=== PATIENT | male | born 1940 | race Caucasian/White ===

== ENCOUNTER 2017-02-19 01:51 | Inpatient (IN) | payer OTHER ==
[~2017-02-19] VITALS: Ht 172.7 cm; Wt 88.9 kg
--- NOTE | 2017-02-19 02:10 | NUR ---
FRANKY RA FROM [facility]; FEVER. PT AOX2. RR EVEN AND UNLABORED. NO SOB NOTED. NAD NOTED. NO NVD AT THIS TIME. PT GOWNED AND PLACED ON MONITOR. PT NOT DIAPHORETIC. RECTAL TEMP 102.8 DR. DESHPANDE AT BEDSIDE.
--- NOTE | 2017-02-19 02:11 | NUR ---
IV STARTED ON LEFT AC 18G. LABS DRAWN. SENT TO LAB
--- NOTE | 2017-02-19 02:12 | NUR ---
PT NOTED WITH COLOSTOMY BAG INTACT.
[2017-02-19] MEDS ORDERED: LEVOFLOXACIN 750 MG /D5W 150ML 150 ML IV ONE (02:15)
[2017-02-19] MEDS ORDERED: ACETAMINOPHEN 650 MG/SUPP.RECT RC ONE ×2 (02:15→02:30)
--- NOTE | 2017-02-19 02:15 | NUR ---
UNABLE TO COLLECT URINE VIA IN N OUT CATH, PER CONDOM CATH PLACED. TOELRATED BY PT.
[2017-02-19 02:21] LABS: BASOPHILS % (AUTO) 0.1 % (0.0-2.0); EOSINOPHILS % (AUTO) 0.1 % (0.0-6.0); HEMATOCRIT 39 % (39-51); HEMOGLOBIN 12.6 g/dL (13.5-17.5); LYMPHOCYTES # (AUTO) 0.8 /CMM (0.8-4.8); LYMPHOCYTES % (AUTO) 8.6 % (20.0-44.0); MEAN CORPUSCULAR HEMOGLOBIN 27 PG (26.0-33.0); MEAN CORPUSCULAR HGB CONC 33 g/dl (31.0-36.0); MEAN CORPUSCULAR VOLUME 84 fL (80-96); MONOCYTES # (AUTO) 1.1 /CMM (0.1-1.30); NEUTROPHILS # (AUTO) 7.2 /CMM (1.8-8.9); NEUTROPHILS % (AUTO) 79.2 % (43.0-81.0); PLATELET COUNT (AUTO) 280 /CMM (150-450); RDW COEFFICIENT OF VARIATION 17.2 (11.5-15.0); RED BLOOD CELL COUNT(AUTO) 4.62 MIL/uL (4.5-6.0); WHITE BLOOD COUNT (AUTO) 9.1 K/uL (4.3-11.0)
--- NOTE | 2017-02-19 02:29 | NUR ---
LAB AT BEDSIDE FOR BLOOD CX DRAW.
[2017-02-19 02:30] LABS: CALCIUM, SERUM 9.4 mg/dL (8.5-10.1); CARBON DIOXIDE 20 mmol/L (21-32); CHLORIDE 104 mmol/L (98-107); GLUCOSE 100 mg/dL (74-106); POTASSIUM 4.8 mmol/L (3.5-5.1); SODIUM SERUM 139 mmol/L (136-145); UREA NITROGEN, BLOOD 63 mg/dL (7-18)
[2017-02-19] MEDS ORDERED: LEVOFLOXACIN 750 MG /D5W 150ML PIGGYBACK IV ONE (02:30)
[2017-02-19] MEDS ORDERED: IV NS 0.9% 1,000 ML BAG IV ONE ×3 (02:30→11:30)
--- NOTE | 2017-02-19 02:30 | NUR ---
XRAY AT BEDSIDE FOR CXR
[2017-02-19 02:33] LABS: INR 1.12 (0.87-1.13); PROTHROMBIN TIME 12.1 SECS (9.5-12.7)
[2017-02-19 02:36] LABS: ALANINE AMINOTRANSFERASE 73 U/L (12-78); ALBUMIN 2.3 g/dL (3.4-5.0); ALKALINE PHOSPHATASE 113 U/L (46-116); ASPARTATE AMINOTRANSFERASE 125 U/L (15-37); BILIRUBIN,TOTAL 1.6 mg/dL (0.2-1.0); TOTAL PROTEIN, SERUM 7.8 g/dL (6.4-8.2)
[2017-02-19 02:38] LABS: TROPONIN I < 0.017 ng/mL (0.00-0.056)
--- NOTE | 2017-02-19 02:43 | NUR ---
PER DR. JERAMY BRAGA TO GIVE IVPB ATB PRIOR TO COLLECTING URINE.
[2017-02-19] MEDS ORDERED: ACET325T53 PO (02:54)
[2017-02-19] MEDS ORDERED: MAGN2400 PO (02:54)
[2017-02-19] MEDS ORDERED: NA P133E RC (02:54)
[2017-02-19] MEDS ORDERED: LEVO125T8 PO (02:54)
[2017-02-19] MEDS ORDERED: BISA10SU8 RC (02:54)
[2017-02-19] MEDS ORDERED: DEXT15DR6 EACHEYE (02:54)
[2017-02-19] MEDS ORDERED: HYDR-552 PO (02:54)
[2017-02-19] MEDS ORDERED: MEMA10TA PO (02:54)
[2017-02-19] MEDS ORDERED: ONDA4TAB11 PO (02:54)
[2017-02-19] MEDS ORDERED: PIPERACILLIN /TAZOBACTAM 3.375 G in IV D5W 50 ML IV ONE (03:30)
[2017-02-19] MEDS ORDERED: VANCOMYCIN 1 GM in IV D5W 250 ML IV ONE (03:30)
[2017-02-19] MEDS ORDERED: OLAN20TA3 PO (03:51)
[2017-02-19] MEDS ORDERED: ATOR10TA PO (03:51)
[2017-02-19] MEDS ORDERED: PANT40TA4 PO (03:51)
[2017-02-19] MEDS ORDERED: ASPI81TA2 PO (03:51)
[2017-02-19] MEDS ORDERED: MULT-1185 PO (03:51)
[2017-02-19] MEDS ORDERED: LAMO100T2 PO (03:51)
[2017-02-19] MEDS ORDERED: FOLI1TAB16 PO (03:51)
[2017-02-19] MEDS ORDERED: PIPERACILLIN /TAZOBACTAM 3.375 G VIAL IV ONE (04:19)
[2017-02-19] MEDS ORDERED: LIDOCAINE 2% JEL UROJET 10 ML MM ONE ×3 (04:47→05:13)
--- NOTE | 2017-02-19 05:17 | NUR ---
DR CARSON JAMES PER DR DESHPANDE
--- NOTE | 2017-02-19 05:18 | NUR ---
UROLOGIST CARSON SPEAKING TO DR. DESHPANDE REGARDING PT POC
[2017-02-19] MEDS ORDERED: PROPOFOL 20 ML IV ONE (05:22)
[2017-02-19] MEDS ORDERED: FENTANYL PF 100MCG/2ML AMPUL ONE (05:22)
--- NOTE | 2017-02-19 05:38 | NUR ---
DR. DESHPANDE AND RT AT BEDSIDE FOR CONSCIOUS SEDATION FOR SUPRAPUBIC CATHETER PLACEMENT.
[2017-02-19] MEDS ORDERED: LIDOCAINE 2% 50 ML MDV IJ ONE (05:41)
--- NOTE | 2017-02-19 05:50 | NUR ---
SUPRAPUBIC CATHETER PLACED PER DR. DESHPANDE
--- NOTE | 2017-02-19 06:00 | NUR ---
URINE COLLECTED. CALLED LAB FOR AUTOMATIC OPERATOR.
--- NOTE | 2017-02-19 06:08 | NUR ---
PT ASSIGNED TO BED 313-1
--- NOTE | 2017-02-19 06:20 | NUR ---
DR. DESHPANDE SPEAKING TO DR. TAYLOR REGARDING POC/ ADMISSION
[2017-02-19] MEDS ORDERED: VANCOMYCIN 1 GM VIAL ONE (06:29)
[2017-02-19] MEDS ORDERED: MAG HYDROX/AL HYDROX/SIMETH 30 ML UDC PO PRN (06:30)
[2017-02-19] MEDS ORDERED: MAGNESIUM HYDROXIDE 30 ML UDC PO PRN (06:30)
[2017-02-19] MEDS ORDERED: ZOLPIDEM TARTRATE 5 MG TABLET PO PRN (06:30)
[2017-02-19] MEDS ORDERED: ONDANSETRON HCL/PF 4 MG/2 ML VIAL IVP PRN (06:30)
--- NOTE | 2017-02-19 06:41 | NUR ---
REPORT GIVEN MARVA MALDONADO FOR VINCENT / BED 313-1
--- NOTE | 2017-02-19 06:50 | NUR ---
RECTAL TEMP RECHECK NOTED 102.3. DR DESHPANDE MADE AWARE.
[2017-02-19] MEDS ORDERED: FENTANYL PF 100MCG/2ML AMPUL IV PRN (07:00)
[2017-02-19] MEDS ORDERED: PROPOFOL 200 MG/20 ML VIAL IV ONE (07:00)
[2017-02-19 07:07] LABS: APPEARANCE,URINE CLOUDY (CLEAR); BILIRUBIN,URINE NEGATIVE (NEGATIVE); BLOOD, URINE 3+ Ery/uL (NEGATIVE); COLOR,URINE YELLOW (YELLOW); KETONES,URINE NEGATIVE (NEGATIVE); LEUKOCYTE ESTERASE ,URINE 3+ (NEGATIVE); NITRITE, URINE NEGATIVE (NEGATIVE); PH,URINE 8.5 (5.0-8.0); PROTEIN,URINE 2+ mg/dl (NEGATIVE); UGLUCOSE NEGATIVE (NEGATIVE); UROBILINOGEN,URINE 0.2 EU/dL (0.2)
[2017-02-19 07:13] LABS: BACTERIA,URINE 4+ /HPF (None Seen); MUCUS,URINE Moderate /LPF (None Seen); RBC,URINE 21-50 /HPF (0-2); URINE AMORPHOUS URATE Moderate /HPF (None Seen); WBC,URINE 81-100 /HPF (0-3)
--- NOTE | 2017-02-19 07:17 | NUR ---
PT TRANSFERED PER [facility]S PROTOCOL TO THE [facility] BED 313-1
--- NOTE | 2017-02-19 07:25 | NUR ---
AUTOCAD OPERATORMATERIAL HANDLING TECHNICIAN NOTE PATIENT ARRIVE TO THE UNIT. REPORT RECEIVED. PATIENT IS FEBRILE. A/O X2. BED IS LOCKED IN LOWEST POSITION, SIDE RAILS ELEVATED X 3, BED ALARM IS ON. ALL NEEDS WITHIN REACH. WILL COME BACK FOR INITIAL ASSESSMENT SHORTLY.
[2017-02-19] MEDS ORDERED: PANTOPRAZOLE 40 MG TABLET.DR PO SCH (07:30)
[2017-02-19 08:00] VITALS: BP 103/49
[2017-02-19] MEDS: LEVOTHYROXINE SODIUM 125 MCG TABLET PO SCH (08:32)
[2017-02-19] MEDS: PANTOPRAZOLE 40 MG TABLET.DR PO SCH (08:33)
[2017-02-19] MEDS: LamoTRIgine 100 MG TABLET PO SCH (08:33)
[2017-02-19] MEDS: ASPIRIN 81 MG TAB.CHEW PO SCH (08:35)
[2017-02-19] MEDS: ACETAMINOPHEN 325 MG TABLET PO PRN (08:36)
[2017-02-19] MEDS: Z GUARD REMEDY 2 OZ OINT TP PRN ×2 (08:43→18:25)
[2017-02-19] MEDS: PIPERACILLIN /TAZOBACTAM 2.25 G in IV D5W 50 ML IV SCH ×3 (10:23→23:38)
[2017-02-19] MEDS: IV NS 0.9% 1,000 ML IV PRN (10:23)
--- NOTE | 2017-02-19 11:21 | NUR ---
MS RN NOTE RECEIVED ORDER FOR IV NS BOLUS. CALLED PHARMACY TO VERIFY THE ORDER. WILL ADMINISTER SOON PHARMACY VERIFIES.
[2017-02-19] MEDS ORDERED: PIPERACILLIN /TAZOBACTAM 4.5 G in IV D5W 50 ML IV SCH (12:00)
[2017-02-19 14:07] LABS: CHOLESTEROL 79 mg/dL (<200); HDL CHOLESTEROL 15 mg/dL (40-60); LDL 49 mg/dL (0-99); TRIGLYCERIDES 86 mg/dL (30-150)
[2017-02-19 16:00] VITALS: BP 105/60
--- NOTE | 2017-02-19 17:15 | NUR ---
MS RN CLOSING NOTE PATIENT IS STABLE IN BED. VS WNL. BED IS LOCKED, IN LOWEST POSITION. SIDE RAILS UP X 2. ALL NEEDS WITHIN REACH. DENIES PAIN/DISCOMFORT AT THIS TIME. WILL ENDORSE TO THE NEST SHIFT FOR VINCENT.
--- NOTE | 2017-02-19 19:15 | NUR ---
RN NOTES RECEIVED PT AWAKE, HOB ELEVATED, NO SOB, NOT IN DISTRESS ON 3LPM O2 VIA NC AND TOLERATED WELL. PT ALERT AND ORIENTED X2, VERBALLY RESPONSIVE, DENIES ANY PAIN AND DISCOMFORT AT THIS TIME. IV ACCESS ON LEFT AC PATENT AND INTACT WITH ONGOING IV FLUID INFUSING WELL. COLOSTOMY BAG INTACT WITH GREENISH WATERY OUTPUT NOTED. SUPRAPUBIC CATH INTACT WITH CLEAR URINE OUTPUT NOTED. BOTH LOWER LEG WITH DVT PUMP ON, WITH BOTH HEELS OFFLOADED. KEPT PT COMFORTABLE AND ATTENDED. KEPT BED IN THE LOWEST POSITION, LOCKED, SIDE RAILS X2 UP, WITH CALL LIGHT WITH IN REACH. WILL CONTINUE TO MONITOR PT.
[2017-02-19 20:00] VITALS: BP 98/55
[2017-02-19] MEDS: HEPARIN SODIUM, PORCINE 5000 UNITS/1 ML VIAL SQ SCH (21:47)
[2017-02-19] MEDS: ATORVASTATIN 10 MG TABLET PO SCH (21:49)
[2017-02-19 22:00] VITALS: BP 98/55
[2017-02-20] MEDS: HYDROCODONE/APAP 5/325MG 1 EACH TABLET PO PRN (00:25)
--- NOTE | 2017-02-20 00:25 | NUR ---
RN NOTES PT COMPLAINS OF GENERALIZED BODY PAIN 01/02NORCO 5/325 MG TAB GIVEN PO AND TOLERATED WELL. WILL CONTINUE TO MONITOR PT.
[2017-02-20] MEDS: IV NS 0.9% 1,000 ML IV PRN ×2 (04:49→21:59)
[2017-02-20] MEDS: PIPERACILLIN /TAZOBACTAM 2.25 G in IV D5W 50 ML IV SCH ×3 (05:17→17:36)
--- NOTE | 2017-02-20 07:11 | NUR ---
RN NOTES PT ASLEEP, HOB ELEVATED, BREATHING REGULAR AND UNLABORED, NO SIGNS OF DISTRESS AND DISCOMFORT NOTED, ON 2LPM O2 WITH GOOD SATURATION. VITAL SIGNS STABLE, AFEBRILE. NO EPISODE OF NAUSEA AND VOMITING. NO COMPLAIN OF CHEST PAIN. KEPT GENERALIZED BODY PAIN AT TOLERABLE LEVEL. KEPT CLEAN AND DRY. TURNED AND REPOSITIONED Q2H. ALL NEEDS ATTENDED. ENDORSED TO MORNING RN FOR CONTINUITY OF CARE.
--- NOTE | 2017-02-20 07:15 | NUR ---
MS RN NOTES RECEIVED PATIENT IN BED, AWAKE. A/O X2. ON OXYGEN AT 3 LPM VIA NC, BREATHING EVEN AND NON LABORED. IV NS INFUSING AT 75ML/HR, TOLERATING WELL, NO SOB. SUPRAPUBIC CATH IN PLACE, DRAINING TO GRAVITY. NO C/O PAIN AT THIS TIME. CALL LIGHT WITHIN REACH. WILL CONT TO MONITOR.
[2017-02-20 07:17] LABS: EOSINOPHILS % (AUTO) 0.4 % (0.0-6.0); HEMATOCRIT 34 % (39-51); HEMOGLOBIN 11.4 g/dL (13.5-17.5); LYMPHOCYTES # (AUTO) 0.3 /CMM (0.8-4.8); LYMPHOCYTES % (AUTO) 4.7 % (20.0-44.0); MEAN CORPUSCULAR HEMOGLOBIN 28 PG (26.0-33.0); MEAN CORPUSCULAR HGB CONC 33 g/dl (31.0-36.0); MEAN CORPUSCULAR VOLUME 83 fL (80-96); MONOCYTES # (AUTO) 0.5 /CMM (0.1-1.30); MONOCYTES % (AUTO) 7.9 % (2.0-12.0); NEUTROPHILS # (AUTO) 5.7 /CMM (1.8-8.9); PLATELET COUNT (AUTO) 263 /CMM (150-450); RDW COEFFICIENT OF VARIATION 18.2 (11.5-15.0); RED BLOOD CELL COUNT(AUTO) 4.14 MIL/uL (4.5-6.0); WHITE BLOOD COUNT (AUTO) 6.6 K/uL (4.3-11.0)
[2017-02-20 07:28] LABS: ALANINE AMINOTRANSFERASE 55 U/L (12-78); ALBUMIN 1.8 g/dL (3.4-5.0); ALKALINE PHOSPHATASE 104 U/L (46-116); ASPARTATE AMINOTRANSFERASE 68 U/L (15-37); BILIRUBIN,TOTAL 1.1 mg/dL (0.2-1.0); CALCIUM, SERUM 8.7 mg/dL (8.5-10.1); CARBON DIOXIDE 19 mmol/L (21-32); CHLORIDE 108 mmol/L (98-107); CREATININE 2.4 mg/dL (0.6-1.3); GLUCOSE 127 mg/dL (74-106); MAGNESIUM 2.3 mg/dL (1.8-2.4); PHOSPHORUS 3.7 mg/dL (2.5-4.9); POTASSIUM 4.2 mmol/L (3.5-5.1); SODIUM SERUM 138 mmol/L (136-145); TOTAL PROTEIN, SERUM 6.6 g/dL (6.4-8.2); UREA NITROGEN, BLOOD 51 mg/dL (7-18)
[2017-02-20 07:47] LABS: CREATINE KINASE, TOTAL 70 U/L (39-308); THYROID STIMULATING HORMONE 0.715 uIU/mL (0.358-3.74)
[2017-02-20 08:00] VITALS: BP 109/43
[2017-02-20] MEDS: PANTOPRAZOLE 40 MG TABLET.DR PO SCH (08:29)
[2017-02-20] MEDS: LamoTRIgine 100 MG TABLET PO SCH (08:29)
[2017-02-20] MEDS: LEVOTHYROXINE SODIUM 125 MCG TABLET PO SCH (08:29)
[2017-02-20] MEDS: ASPIRIN 81 MG TAB.CHEW PO SCH (08:29)
[2017-02-20] MEDS: HEPARIN SODIUM, PORCINE 5000 UNITS/1 ML VIAL SQ SCH ×2 (08:34→21:23)
--- NOTE | 2017-02-20 09:08 | NUR ---
PATIENT IS SEEN BY DR. SUN-NEURO. FOR PT EVAL TODAY.
--- NOTE | 2017-02-20 10:30 | NUR ---
LOW ALBUMIN 1.8 PATIENT IS SEEN BY KEYONNA. WILL COLLECT STOOL FOR C-DIFF.
[2017-02-20] MEDS: POVIDONE-IODINE OINT 28.4 GM TUBE TP SCH ×2 (10:53→17:36)
--- NOTE | 2017-02-20 10:55 | NUR ---
SUPRAPUBIC CATH IN PLACE WITH CLOUDY YELLOW URINE. BED LINENS WET, NOTED URINE. RIGHT EYE WITH WHITE DISCHARGE EARLIER THIS MORNING. PATIENT IS SEEN BY ID-DR. ALMANZA. WILL INFORM POT LINING SUPERVISOR-SUDHA.
--- NOTE | 2017-02-20 10:57 | NUR ---
WOUND CARE CONSULT: PT PRESENTS WITH SACRAL SCARRING AND DRY ESCHAR TO RT GREAT TOE, PRESENT ON ADMISSION. PT HAS SUPRAPUBIC CATH WITH DRAINAGE BAG AND URINE SEEMS TO BE LEAKING FROM MEATUS ALSO. NOTIFIED BY RN. PT ON GERALDO ISOFLEX LOW AIRLOSS BED. ALL SKIN PROTECTION MEASURES IN PLACE AND DISCUSSED WITH NURSING STAFF. SKIN TO BE KEPT CLEAN AND DRY. PT FOLLOWED BY PLASTICS TEAM AND PODIATRY. DEFER WOUND TREATMENT PLAN TO PLASTICS/PODIATRY TEAM. WILL SEE PRN. IN AGREEMENT WITH PLAN OF CARE. Addendum: 02/20/17 at 1101 by TORRIE NUNEZ WNDNU Amended: Links added.
[2017-02-20] MEDS: ALBUMIN 25% 25 GM in PREMIX 1 EA IV SCH ×2 (12:53→21:59)
[2017-02-20 15:15] LABS: APPEARANCE,URINE TURBID (CLEAR); COLOR,URINE YELLOW (YELLOW)
[2017-02-20 15:16] LABS: BILIRUBIN,URINE NEGATIVE (NEGATIVE); BLOOD, URINE 3+ Ery/uL (NEGATIVE); KETONES,URINE 1+ (NEGATIVE); LEUKOCYTE ESTERASE ,URINE 3+ (NEGATIVE); NITRITE, URINE NEGATIVE (NEGATIVE); PROTEIN,URINE 3+ mg/dl (NEGATIVE); UGLUCOSE NEGATIVE (NEGATIVE); UROBILINOGEN,URINE 0.2 EU/dL (0.2)
[2017-02-20 15:21] LABS: CREATININE, URINE 15.7 MG/DL (30.0-125.0)
[2017-02-20 15:57] LABS: BACTERIA,URINE Few /HPF (None Seen); RBC,URINE TOO NUMEROUS TO COUN /HPF (0-2); SQUAMOUS EPITHELIAL CELL,UR Few /HPF (None Seen); WBC,URINE TOO NUMEROUS TO COUN /HPF (0-3)
[2017-02-20 16:00] VITALS: BP 98/55
[2017-02-20 16:05] LABS: URINE TOTAL PROTEIN 735.7 mg/dL (0-11.9)
[2017-02-20 17:30] LABS: EOSINOPHIL,URINE None Seen
[2017-02-20] MEDS: TOBRAMYCIN OPHTH 5ML 5 ML BOTTLE RIGHTEYE SCH (17:40)
--- NOTE | 2017-02-20 19:00 | NUR ---
MS RN CLOSING NOTES PATIENT IN BED, NOT IN DISTRESS. ON ANTIBIOTIC ORDERED WITH NO S/S OF ADVERSE REACTION. AFEBRILE. GOOD EYE CARE PROVIDED. SUPRAPUBIC CATH INTACT, DRAINING CLOUDY CREAM COLORED URINE. EPISODE OF URINE FROM PENILE MEATUS X1, WELLNESS NURSE RN-SUDHA IS AWARE WITH NO NEW ORDERS AT THIS TIME. STOOL COLLECTED AND SENT TO LAB FOR C-DIFF TEST. CALL LIGHT WITHIN REACH. TURN AND REPOSITION IN BED. WILL ENDORSE TO HEAD OF BIOLOGY RN FOR VINCENT.
--- NOTE | 2017-02-20 19:05 | NUR ---
RN NOTES RECEIVED PT ASLEEP, HOB ELEVATED, NO SIGNS OF DISTRESS AND DISCOMFORT NOTED, ON 3LPM O2 AND TOLERATED WELL. IV ACCESS ON LEFT AC PATENT AND INTACT WITH NS AT 75 MLS/HR INFUSING WELL. SUPRAPUBIC CATH INTACT WITH CLOUDY YELLOW URINE OUTPUT NOTED. BOTH HEELS OFFLOADED. KEPT BED IN THE LOWEST POSITION, LOCKED, SIDE RAILS UP X2 WITH CALL LIGHT WITH IN REACH. KEPT COMFORTABLE AND ATTENDED. WILL CONTINUE TO MONITOR PT.
[2017-02-20 20:39] VITALS: BP 106/52
[2017-02-20] MEDS: ATORVASTATIN 10 MG TABLET PO SCH (21:23)
[2017-02-21] MEDS: PIPERACILLIN /TAZOBACTAM 2.25 G in IV D5W 50 ML IV SCH ×5 (00:03→23:56)
--- NOTE | 2017-02-21 06:52 | NUR ---
RN NOTES PT ASLEEP, HOB ELEVATED, BREATHING REGULAR AND UNLABORED, NO SIGNS OF DISTRESS AND DISCOMFORT NOTED, ON 2LPM O2 WITH GOOD SATURATION. VITAL SIGNS STABLE, AFEBRILE. NO COMPLAIN OF PAIN, NO EPISODE OF NAUSEA AND VOMITING. URINE OUTPUT NOTED CLOUDY WITH SEDIMENTS. KEPT CLEAN AND DRY. TURNED AND REPOSITIONED Q2H. ALL MEDS GIVEN. ALL NEEDS ATTENDED. ENDORSED TO MORNING RN FOR CONTINUITY OF CARE.
[2017-02-21 07:08] LABS: BASOPHILS % (AUTO) 0.1 % (0.0-2.0); EOSINOPHILS % (AUTO) 0.4 % (0.0-6.0); HEMATOCRIT 31 % (39-51); HEMOGLOBIN 10.5 g/dL (13.5-17.5); LYMPHOCYTES # (AUTO) 0.5 /CMM (0.8-4.8); LYMPHOCYTES % (AUTO) 8.6 % (20.0-44.0); MEAN CORPUSCULAR HEMOGLOBIN 28 PG (26.0-33.0); MEAN CORPUSCULAR HGB CONC 34 g/dl (31.0-36.0); MEAN CORPUSCULAR VOLUME 83 fL (80-96); MONOCYTES # (AUTO) 0.5 /CMM (0.1-1.30); MONOCYTES % (AUTO) 8.7 % (2.0-12.0); NEUTROPHILS # (AUTO) 4.9 /CMM (1.8-8.9); NEUTROPHILS % (AUTO) 82.2 % (43.0-81.0); PLATELET COUNT (AUTO) 252 /CMM (150-450); RDW COEFFICIENT OF VARIATION 17.9 (11.5-15.0)
[2017-02-21 07:29] LABS: CALCIUM, SERUM 8.6 mg/dL (8.5-10.1); CARBON DIOXIDE 20 mmol/L (21-32); CHLORIDE 109 mmol/L (98-107); GLUCOSE 95 mg/dL (74-106); MAGNESIUM 2.2 mg/dL (1.8-2.4); PHOSPHORUS 3.4 mg/dL (2.5-4.9); POTASSIUM 4.4 mmol/L (3.5-5.1); SODIUM SERUM 139 mmol/L (136-145); UREA NITROGEN, BLOOD 40 mg/dL (7-18)
--- NOTE | 2017-02-21 07:30 | NUR ---
RN MS NOTES PT IN BED, AWAKE, ALERT AND ORIENTED, DENIES PAIN, NOT IN DISTRESS, IV FLUIDS INFUSING WELL, SUPRAPUBIC CATH IN PLACE, CALL LIGHT WITHIN REACH, ASSISTED WITH BREAKFAST, NEEDS ATTENDED.
[2017-02-21 08:00] VITALS: BP 109/52
[2017-02-21] MEDS: ASPIRIN 81 MG TAB.CHEW PO SCH (08:19)
[2017-02-21] MEDS: PANTOPRAZOLE 40 MG TABLET.DR PO SCH (08:19)
[2017-02-21] MEDS: LamoTRIgine 100 MG TABLET PO SCH (08:19)
[2017-02-21] MEDS: LEVOTHYROXINE SODIUM 125 MCG TABLET PO SCH (08:27)
[2017-02-21] MEDS: TOBRAMYCIN OPHTH 5ML 5 ML BOTTLE RIGHTEYE SCH ×2 (08:28→16:58)
[2017-02-21] MEDS: HEPARIN SODIUM, PORCINE 5000 UNITS/1 ML VIAL SQ SCH ×2 (08:29→22:03)
[2017-02-21] MEDS: POVIDONE-IODINE OINT 28.4 GM TUBE TP SCH ×2 (08:33→16:58)
[2017-02-21 12:12] LABS: PTH, INTACT 25 pg/mL (15-65)
--- NOTE | 2017-02-21 12:30 | NUR ---
RN MS NOTES PT IN BED, ASLEEP, EASY TO AROUSE, ALERT AND ORIENTED, NO COMPLAINT AT THIS TIME, IV FLUIDS INFUSING WELL, ASSISTED IN TURNING AND REPOSITIONING, KEPT SKIN CLEAN AND DRY, CALL LIGHT WITHIN REACH.
[2017-02-21 13:13] LABS: *SPE A/G RATIO 0.6 (0.7-1.7); *SPE ALBUMIN 2.1 g/dL (2.9-4.4); *SPE ALPHA-1-GLOBULIN 0.4 g/dL (0.0-0.4); *SPE ALPHA-2-GLOBULIN 0.9 g/dL (0.4-1.0); *SPE BETA GLOBULIN 0.8 g/dL (0.7-1.3); *SPE GLOBULIN, TOTAL 3.4 g/dL (2.2-3.9); *SPE M-SPIKE Not Observed g/dL (Not Observed); *SPE PROTEIN TOTAL 5.5 g/dL (6.0-8.5); *SPEGAMMA GLOBULIN 1.2 g/dL (0.4-1.8)
[2017-02-21] MEDS: IV NS 0.9% 1,000 ML IV PRN (14:27)
[2017-02-21 16:00] VITALS: BP 109/62
--- NOTE | 2017-02-21 17:52 | NUR ---
Patient slept most of the day, awakening when name spoken. Repositioned Q 2 hours and patient was cooperative. Remains for aditted UTI. Colostomy putting out liquid nash stool. New colostomy bag applied. Remains on Zosyn Supra pubic cath drainage clear yellow. Right great toe noted small scabbed areas, oint applied as ordered. Patient with a good appetite, assist fedand gave encouragment.
--- NOTE | 2017-02-21 19:40 | NUR ---
RN OPENING NOTES RECEIVED REPORT FROM ARINAMAJORDANA RN ADITYA. FOUND Pt AWAKE, RESTING IN BED. NO S/S OF ACUTE DISTRESS OR SOB NOTED. Pt IS A/OX2, VERBAL, ABLE TO MAKE NEEDS KNOWN. COLOSTOMY BAG IN PLACE. SUPRAPUBIC CATH IN PLACE, TENDENCY TO LEAK OUT. IV ACCESS ON LAC #18G, IVF NS @75ML/HR. SAFETY MEASURES IN PLACE. BED LOW, LOCKED, HOB ELEVATED, SIDE RAILS UP, CALL LIGHT AND BEDSIDE TABLE WITHIN REACH. WILL CONTINUE TO MONITOR Pt THROUGHOUT THE NIGHT FOR SAFETY.
[2017-02-21 20:00] VITALS: BP 112/53
[2017-02-21] MEDS: NYSTATIN TOP POWDER 15 GM BOTTLE TP SCH (21:30)
--- NOTE | 2017-02-21 22:00 | NUR ---
RN NOTES NYSTATIN TOP POWDER IS UNVERIFIED PHARMACY IS CLOSED AT THIS TIME. INFORMED CAREERS ADVISER FOR THE MED TO BE OVERIDED. WILL APPLY THE TOP POWDER WHEN MED BECOMES AVAILABLE.
[2017-02-21] MEDS: ATORVASTATIN 10 MG TABLET PO SCH (22:01)
[2017-02-22] MEDS: PIPERACILLIN /TAZOBACTAM 2.25 G in IV D5W 50 ML IV SCH ×4 (05:59→23:38)
[2017-02-22] MEDS: IV NS 0.9% 1,000 ML IV PRN ×2 (06:05→21:08)
--- NOTE | 2017-02-22 06:34 | NUR ---
RN CLOSING NOTES NO SIGNIFICANT CHANGES IN Pt's CONDITION. Pt REMAINED STABLE THROUGHOUT THE NIGHT. NO S/S OF ACUTE DISTRESS OR SOB NOTED. ALL NEEDS MET AND ATTENDED TO. SAFETY MEASURES IN PLACE. WILL ENDORSE TO DAYSHIFT RN FOR Pt's VINCENT.
[2017-02-22 07:02] LABS: BASOPHILS % (AUTO) 0.3 % (0.0-2.0); EOSINOPHILS % (AUTO) 0.3 % (0.0-6.0); HEMATOCRIT 32 % (39-51); HEMOGLOBIN 10.7 g/dL (13.5-17.5); LYMPHOCYTES # (AUTO) 0.7 /CMM (0.8-4.8); LYMPHOCYTES % (AUTO) 11.5 % (20.0-44.0); MEAN CORPUSCULAR HEMOGLOBIN 28 PG (26.0-33.0); MEAN CORPUSCULAR HGB CONC 33 g/dl (31.0-36.0); MEAN CORPUSCULAR VOLUME 83 fL (80-96); MONOCYTES # (AUTO) 0.6 /CMM (0.1-1.30); NEUTROPHILS # (AUTO) 4.8 /CMM (1.8-8.9); NEUTROPHILS % (AUTO) 77.9 % (43.0-81.0); PLATELET COUNT (AUTO) 289 /CMM (150-450); RDW COEFFICIENT OF VARIATION 18.3 (11.5-15.0); RED BLOOD CELL COUNT(AUTO) 3.87 MIL/uL (4.5-6.0); WHITE BLOOD COUNT (AUTO) 6.1 K/uL (4.3-11.0)
[2017-02-22 07:20] LABS: CALCIUM, SERUM 8.4 mg/dL (8.5-10.1); CARBON DIOXIDE 19 mmol/L (21-32); CHLORIDE 108 mmol/L (98-107); GLUCOSE 97 mg/dL (74-106); PHOSPHORUS 3.3 mg/dL (2.5-4.9); POTASSIUM 4.5 mmol/L (3.5-5.1); SODIUM SERUM 138 mmol/L (136-145); UREA NITROGEN, BLOOD 34 mg/dL (7-18)
--- NOTE | 2017-02-22 07:44 | NUR ---
EFFIE RALPH RN: INITIAL NOTES RECEIVED PT ALERT AND ORIENTED X2. PACE MAKER PLACED IN RIGHT UPPER CHEST WALL. COLOSTOMY PRESENT, AND SUPRAPUBIC CATH. ON CARDIAC DIET. LAC #18. RUNNING AT 75ML./HR. NO DISTRESS NOTED. NO PAIN NOTED. NO SOB NOTED. RESTING COMFORTABLY IN BED. CALL LIGHT WITHIN REACH.
[2017-02-22 08:00] VITALS: BP 129/55
[2017-02-22] MEDS: ASPIRIN 81 MG TAB.CHEW PO SCH (08:41)
[2017-02-22] MEDS: NYSTATIN TOP POWDER 15 GM BOTTLE TP SCH ×2 (08:41→17:16)
[2017-02-22] MEDS: LamoTRIgine 100 MG TABLET PO SCH (08:41)
[2017-02-22] MEDS: HEPARIN SODIUM, PORCINE 5000 UNITS/1 ML VIAL SQ SCH ×2 (08:42→21:08)
[2017-02-22] MEDS: TOBRAMYCIN OPHTH 5ML 5 ML BOTTLE RIGHTEYE SCH ×2 (08:42→17:16)
[2017-02-22] MEDS: POVIDONE-IODINE OINT 28.4 GM TUBE TP SCH ×2 (08:43→17:16)
[2017-02-22] MEDS: PANTOPRAZOLE 40 MG TABLET.DR PO SCH (08:45)
[2017-02-22] MEDS: LEVOTHYROXINE SODIUM 125 MCG TABLET PO SCH (08:45)
[2017-02-22 16:00] VITALS: BP 117/54
--- NOTE | 2017-02-22 18:25 | NUR ---
MED SURGE RN: CLOSING NOTE PT ALERT AND ORIENTED X 2. NO DISTRESS NOTED. ON 2L NC SATING AT 95%. NO SOB NOTED. L AC #18G RUNNING NS AT 75ML/HR. SITE PATENT. ATB IV ZOSYN INFUSED. NO ADVERSE REACTIONS NOTED. TOOK ALL MEDICATIONS ON TIME. COLOSTOMY OUTPUT 400ML. SITE PINK AND CLEAR. NO BLEEDING OR DISCOLORATION NOTED. NO PAIN AT SITE. CHANGES BAG. SUPRAPUBIC CATH LEAKING. NOTIFIED MD PEREZ, AWAITING ORDERS. OUTPUT IN DIAPER X4 DUE TO LEAKAGE. RESTING COMFORTABLY IN BED. CALL LIGHT WITHIN REACH.
--- NOTE | 2017-02-22 18:40 | NUR ---
MED SURGE RN: NOTES NOTIFIED MD PEREZ ABOUT LEAKING SUPRAPUBIC CATH. DR. PEREZ STATED THAT TO NOTIFY ER TO REINSERT. NOTIFIED ER. ER IS NOT ABLE TO REINSERT AT THIS TIME DUE TO HIGH SENSES. RE-NOTIFIED .
--- NOTE | 2017-02-22 19:15 | NUR ---
RN NOTES RECEIVED PT AWAKE, HOB ELEVATED, NO SIGNS OF DISTRESS AND DISCOMFORT NOTED, ON 3LPM O2 AND TOLERATED WELL. IV ACCESS ON LEFT AC PATENT AND INTACT WITH NS AT 75 MLS/HR INFUSING WELL. SUPRAPUBIC CATH INTACT BUT NO URINE OUTPUT NOTED ON THE DRAINAGE BAG, ON MORNING NURSE REPORT WILL REINSERT BY DR LOPEZ PER DR PEREZ. BOTH HEELS OFFLOADED. KEPT BED IN THE LOWEST POSITION, LOCKED, SIDE RAILS UP X2 WITH CALL LIGHT WITH IN REACH. KEPT COMFORTABLE AND ATTENDED. WILL CONTINUE TO MONITOR PT.
[2017-02-22 20:00] VITALS: BP 108/50
--- NOTE | 2017-02-22 20:50 | NUR ---
RN NOTES SPOKE TO DR LILY LOPEZ MADE HIM AWARE PT IS FOR SUPRAPUBIC CATH REPLACEMENT TO BE DONE BY HIM PER DR. PEREZ.
[2017-02-22] MEDS: ATORVASTATIN 10 MG TABLET PO SCH (21:08)
[2017-02-22 22:00] VITALS: BP 108/50
[2017-02-22 22:08] LABS: *NEISSERIA GONORRHOEAE NAA Negative (Negative); CHLAMYDIA TRACHOMATIS NAA Negative (Negative)
[2017-02-23 04:00] VITALS: BP 111/57
--- NOTE | 2017-02-23 05:30 | NUR ---
RN NOTES DIAPER WAS CHANGED 3X SOAKED WITH URINE, BLADDER SCAN DONE WITH [address] LOPEZ MADE AWARE, WILL REPLACE SUPRAPUBIC CATH TONIGHT.
[2017-02-23] MEDS: PIPERACILLIN /TAZOBACTAM 2.25 G in IV D5W 50 ML IV SCH ×3 (06:32→17:14)
[2017-02-23 06:59] LABS: BASOPHILS % (AUTO) 0.2 % (0.0-2.0); EOSINOPHILS % (AUTO) 0.4 % (0.0-6.0); HEMATOCRIT 33 % (39-51); HEMOGLOBIN 11.2 g/dL (13.5-17.5); LYMPHOCYTES # (AUTO) 0.6 /CMM (0.8-4.8); LYMPHOCYTES % (AUTO) 8.8 % (20.0-44.0); MEAN CORPUSCULAR HEMOGLOBIN 28 PG (26.0-33.0); MEAN CORPUSCULAR HGB CONC 34 g/dl (31.0-36.0); MEAN CORPUSCULAR VOLUME 83 fL (80-96); MONOCYTES # (AUTO) 0.9 /CMM (0.1-1.30); NEUTROPHILS # (AUTO) 5.7 /CMM (1.8-8.9); NEUTROPHILS % (AUTO) 77.6 % (43.0-81.0); PLATELET COUNT (AUTO) 315 /CMM (150-450); WHITE BLOOD COUNT (AUTO) 7.3 K/uL (4.3-11.0)
--- NOTE | 2017-02-23 07:15 | NUR ---
RN NOTES PT ASLEEP, HOB ELEVATED, BREATHING REGULAR AND UNLABORED, NO SIGNS OF DISTRESS AND DISCOMFORT NOTED, ON 2LPM O2 WITH GOOD SATURATION. VITAL SIGNS STABLE, AFEBRILE. NO COMPLAIN OF PAIN, NO EPISODE OF NAUSEA AND VOMITING. SUPRAPUBIC CATH STILL NOTED LEAKING, DIAPER WAS CHANGED 3X. DR LOPEZ WILL REPLACE SUPRAPUBIC CATH TONIGHT. KEPT PT CLEAN AND DRY. TURNED AND REPOSITIONED Q2H. ALL DUE MEDS GIVEN. ALL NEEDS ATTENDED. ENDORSED TO MORNING RN FOR CONTINUITY OF CARE.
--- NOTE | 2017-02-23 07:17 | NUR ---
MS/RN NOTES RECEIVED PATIENT AWAKE IN BED IN NO ACUTE SIGNS OF DISTRESS. ALERT AND ORIENTED X2, NO C/O PAIN OR DISCOMFORTS VOICED AT THIS TIME. ON SUPPLEMENTAL 02 VIA N/C AT 2LPM, BREATHING EVEN AND UNLABORED. IV ACCESS ON RIGHT FOREARM G#18 PATENT AND INTACT WITH IVF OF NS @ 75ML/HR, NO INFILTRATION NOTED. SUPRAPUBIC CATHETER IN PLACE WITH ABOUT 40ML OF CLEAR YELLOW URINE NOTED ON THE COLLECTING BAG. BED IN LOW POSITION AND LOCKED WITH SIDE-RAILS UP X2. CALL LIGHT WITHIN REACH. ALL SAFETY MEASURES MAINTAINED. WILL CONTINUE TO MONITOR PT. ACCORDINGLY.
[2017-02-23 07:29] LABS: CALCIUM, SERUM 8.5 mg/dL (8.5-10.1); CARBON DIOXIDE 17 mmol/L (21-32); CHLORIDE 109 mmol/L (98-107); CREATININE 1.9 mg/dL (0.6-1.3); GLUCOSE 90 mg/dL (74-106); MAGNESIUM 2.1 mg/dL (1.8-2.4); PHOSPHORUS 3.3 mg/dL (2.5-4.9); POTASSIUM 4.3 mmol/L (3.5-5.1); SODIUM SERUM 139 mmol/L (136-145); UREA NITROGEN, BLOOD 28 mg/dL (7-18)
[2017-02-23 08:00] VITALS: BP 109/45
[2017-02-23] MEDS: LEVOTHYROXINE SODIUM 125 MCG TABLET PO SCH (08:47)
[2017-02-23] MEDS: LamoTRIgine 100 MG TABLET PO SCH (08:47)
[2017-02-23] MEDS: PANTOPRAZOLE 40 MG TABLET.DR PO SCH (08:47)
[2017-02-23] MEDS: ASPIRIN 81 MG TAB.CHEW PO SCH (08:47)
[2017-02-23] MEDS: Z GUARD REMEDY 2 OZ OINT TP PRN ×2 (08:48→16:08)
[2017-02-23] MEDS: POVIDONE-IODINE OINT 28.4 GM TUBE TP SCH ×2 (08:50→16:08)
[2017-02-23] MEDS: NYSTATIN TOP POWDER 15 GM BOTTLE TP SCH ×2 (08:50→16:16)
[2017-02-23] MEDS: HEPARIN SODIUM, PORCINE 5000 UNITS/1 ML VIAL SQ SCH ×2 (08:52→22:01)
[2017-02-23] MEDS: TOBRAMYCIN OPHTH 5ML 5 ML BOTTLE RIGHTEYE SCH ×2 (08:53→16:08)
[2017-02-23 16:00] VITALS: BP 111/57
[2017-02-23] MEDS: IV NS 0.9% 1,000 ML IV PRN (17:23)
--- NOTE | 2017-02-23 19:30 | NUR ---
MS/RN CLOSING NOTES' PT IN BED ALERT AND ORIENTED X 2, HOB ELEVATED. ON 02 AT 2LPM VIA NC, BREATHING EVEN WITH NO SOB NOTED. IVF OF NS AT 75ML/H RUNNING TO RIGHT FA, NO SIGNS OF INFILTRATION NOTED. COLOSTOMY OUTPUT OF 450ML THIS TOUR NOTED. NO BLEEDING OR DISCOLORATION NOTED. COLOSTOMY CARE DONE. SUPRAPUBIC CATH LEAKING, DR PEREZ AWARE AND DR LOPEZ WILL REPLACE CATHETER TONIGHT. BED LOW AND LOCKED WITH SIDERAILS UP X2. CALL LIGHT WITHIN REACH. ALL NEEDS AND CARE PROVIDED WELL. ENDORSED TO PIPE INSULATOR HELPER NURSE FOR VINCENT.
--- NOTE | 2017-02-23 20:00 | NUR ---
MS/RN RECEIVE PATIENT AWAKE, ALERT, ORIENTED, COMFORTABLE, NO C/O PAIN, NO DISTRESS NOTED, CALL LIGHT IN REACH. WILL MONITOR.
[2017-02-23 20:31] VITALS: BP 115/49
[2017-02-23] MEDS: ATORVASTATIN 10 MG TABLET PO SCH (21:58)
[2017-02-23] MEDS: ACETAMINOPHEN 325 MG TABLET PO PRN (22:00)
[2017-02-24] MEDS: PIPERACILLIN /TAZOBACTAM 2.25 G in IV D5W 50 ML IV SCH ×3 (00:41→12:08)
--- NOTE | 2017-02-24 02:29 | NUR ---
MS/RN NO URINE OUTPUT IN THE F/C BAG NOTED, DID BLADDER SCAN, 615 mls. NOTED. CALL MADE TO [employer], LEFT MESSAGE.
--- NOTE | 2017-02-24 03:00 | NUR ---
MS/RN DR. LILY LOPEZ CALLED, INFORMED HIM OF THE BLADDER SCAN. PER DR. BAUTISTA HE WILL COME AND CHANGE THE SUPRAPUBIC CATHETER.
--- NOTE | 2017-02-24 03:16 | NUR ---
MS/RN PATIENT HAS FR. 12 CATHETER. CALLED THE INCIDENT ANALYST, LUISITO, AND REQUESTED FOR FR. 12 F/C.
--- NOTE | 2017-02-24 04:13 | NUR ---
MS/RN DR. LILY LOPEZ WAS HERE AT AROUND 0325, HE CHANGE THE SUPRAPUBIC CATHETER, INITIALLY, VERY SLOW FLOW WAS NOTED, DR. BAUTISTA IRRIGATED THE CATHETER WITH NS IRRIGATION SOLUTION UNTIL THE ASPIRATE WAS CLEAR. SEVERAL CLOTS/TISSUE WERE NOTED. I ASSISTED HIM WITH THE PROCEDURE.
--- NOTE | 2017-02-24 06:53 | NUR ---
MS/RN SLEEPING, COMFORTABLE, NO CHANGE IN CONDITION. ALL NEEDS ATTENDED AT THIS TIME. WILL CONTINUE TO MONITOR.
--- NOTE | 2017-02-24 07:14 | NUR ---
MS/RN OPENING NOTES RECEIVED PATIENT AWAKE IN BED IN NO ACUTE SIGNS OF DISTRESS. ALERT AND ORIENTED X2, NO C/O PAIN OR DISCOMFORTS VOICED AT THIS TIME. ON 02 VIA N/C AT 2LPM, BREATHING EVEN AND UNLABORED. IV ACCESS ON RIGHT FA PATENT AND INTACT WITH IVF OF NS @ 75ML/HR INFUSING, NO INFILTRATION NOTED. SUPRAPUBIC CATHETER IN PLACE WITH CLEAR YELLOW URINE NOTED ON THE DRAINAGE BAG. BED IN LOW POSITION AND LOCKED WITH SIDE-RAILS UP X2. CALL LIGHT WITHIN REACH. ALL SAFETY MEASURES IN PLACED. WILL CONTINUE TO MONITOR PT ACCORDINGLY.
[2017-02-24 08:00] VITALS: BP 102/50
[2017-02-24] MEDS: LEVOTHYROXINE SODIUM 125 MCG TABLET PO SCH (08:03)
[2017-02-24] MEDS: PANTOPRAZOLE 40 MG TABLET.DR PO SCH (08:03)
[2017-02-24] MEDS: LamoTRIgine 100 MG TABLET PO SCH (08:04)
[2017-02-24] MEDS: ASPIRIN 81 MG TAB.CHEW PO SCH (08:04)
[2017-02-24] MEDS: POVIDONE-IODINE OINT 28.4 GM TUBE TP SCH ×2 (08:06→16:04)
[2017-02-24] MEDS: TOBRAMYCIN OPHTH 5ML 5 ML BOTTLE RIGHTEYE SCH (08:06)
[2017-02-24] MEDS: NYSTATIN TOP POWDER 15 GM BOTTLE TP SCH ×2 (08:07→16:05)
[2017-02-24] MEDS: HEPARIN SODIUM, PORCINE 5000 UNITS/1 ML VIAL SQ SCH ×2 (08:12→21:44)
[2017-02-24 10:13] LABS: BASOPHILS % (AUTO) 0.1 % (0.0-2.0); EOSINOPHILS # (AUTO) 0.1 /CMM (0.0-0.7); EOSINOPHILS % (AUTO) 0.8 % (0.0-6.0); HEMATOCRIT 34 % (39-51); HEMOGLOBIN 11.1 g/dL (13.5-17.5); LYMPHOCYTES # (AUTO) 0.6 /CMM (0.8-4.8); LYMPHOCYTES % (AUTO) 9.1 % (20.0-44.0); MEAN CORPUSCULAR HEMOGLOBIN 27 PG (26.0-33.0); MEAN CORPUSCULAR HGB CONC 33 g/dl (31.0-36.0); MEAN CORPUSCULAR VOLUME 83 fL (80-96); MONOCYTES # (AUTO) 0.7 /CMM (0.1-1.30); MONOCYTES % (AUTO) 11.1 % (2.0-12.0); NEUTROPHILS # (AUTO) 5.2 /CMM (1.8-8.9); NEUTROPHILS % (AUTO) 78.9 % (43.0-81.0); PLATELET COUNT (AUTO) 369 /CMM (150-450); RDW COEFFICIENT OF VARIATION 17.8 (11.5-15.0); RED BLOOD CELL COUNT(AUTO) 4.04 MIL/uL (4.5-6.0); WHITE BLOOD COUNT (AUTO) 6.6 K/uL (4.3-11.0)
[2017-02-24 10:26] LABS: CALCIUM, SERUM 8.3 mg/dL (8.5-10.1); CARBON DIOXIDE 17 mmol/L (21-32); CHLORIDE 111 mmol/L (98-107); CREATININE 1.7 mg/dL (0.6-1.3); GLUCOSE 105 mg/dL (74-106); MAGNESIUM 2.2 mg/dL (1.8-2.4); PHOSPHORUS 3.2 mg/dL (2.5-4.9); POTASSIUM 3.8 mmol/L (3.5-5.1); SODIUM SERUM 139 mmol/L (136-145); UREA NITROGEN, BLOOD 23 mg/dL (7-18)
[2017-02-24] MEDS: IV NS 0.9% 1,000 ML IV PRN (12:15)
[2017-02-24] MEDS: CEFTAZIDIME 1 G in IV D5W 50 ML IV SCH (15:26)
[2017-02-24 16:00] VITALS: BP 116/54
[2017-02-24 16:03] VITALS: BP 116/54
--- NOTE | 2017-02-24 18:52 | NUR ---
MS/RN CLOSING NOTES' PT IN BED AT MODERATE HIGH BACKREST. ALERT AND ORIENTED X 2, NOTED MORE ALERT AND CONVERSANT TODAY. ON 02 AT 2LPM VIA NC, BREATHING EVEN WITH NO SOB NOTED. IVF OF NS AT 75ML/H RUNNING TO RIGHT FA, NO SIGNS OF INFILTRATION NOTED. COLOSTOMY OUTPUT THIS TOUR 900ML. COLOSTOMY CARE DONE. SUPRAPUBIC CATH IN PLACE AND ACTIVELY DRAINING DARK YELLOW URINE WITHOUT SEDIMENTATION, URINE OUTPUT 600ML THIS TOUR.KEPT BED LOW AND LOCKED WITH SIDE-RAILS UP X2. CALL LIGHT WITHIN REACH. ALL SAFETY MEASURES KEPT IN PLACE. ALL NEEDS AND CARE PROVIDED WELL. ENDORSED TO OPTOELECTRONICS ENGINEER NURSE FOR VINCENT.
[2017-02-24 20:00] VITALS: BP 130/56
--- NOTE | 2017-02-24 20:00 | NUR ---
MS/RN RECEIVE PATIENT AWAKE, ALERT, ORIENTED TO NAME ONLY, WITH CONFUSION, NO C/O PAIN, NO SIGNS OF DISTRESS NOTED, CALL LIGHT IN REACH. WILL MONITOR.
[2017-02-24] MEDS: ATORVASTATIN 10 MG TABLET PO SCH (21:44)
[2017-02-25] MEDS: IV NS 0.9% 1,000 ML IV PRN (02:33)
[2017-02-25] MEDS: CEFTAZIDIME 1 G in IV D5W 50 ML IV SCH ×2 (02:59→15:25)
--- NOTE | 2017-02-25 06:49 | NUR ---
MS/RN PATIENT STILL SLEEPING AT THIS TIME, AROUSABLE, APPEAR COMFORTABLE, NO DISTRESS NOTED, CALL LIGHT IN REACH. WILL CONTINUE TO MONITOR. ALL NEEDS ATTENDED AT THIS TIME.
--- NOTE | 2017-02-25 06:59 | NUR ---
MS/RN PATIENT REFUSED BLOOD DRAW. EXPLAINED IMPORTANCE, BUT STILL REFUSED.
[2017-02-25] MEDS: PANTOPRAZOLE 40 MG TABLET.DR PO SCH (07:30)
[2017-02-25] MEDS: LEVOTHYROXINE SODIUM 125 MCG TABLET PO SCH (07:30)
--- NOTE | 2017-02-25 07:30 | NUR ---
ALERT AND ORIENTED X1.ARGUMENTATIVE REGARDS TO TAKING MEDS.
[2017-02-25 08:00] VITALS: BP 125/99
[2017-02-25] MEDS: ASPIRIN 81 MG TAB.CHEW PO SCH (09:00)
[2017-02-25] MEDS: LamoTRIgine 100 MG TABLET PO SCH ×2 (09:00→12:48)
[2017-02-25] MEDS: HEPARIN SODIUM, PORCINE 5000 UNITS/1 ML VIAL SQ SCH (09:00)
[2017-02-25] MEDS ORDERED: CEFT1VIA55 IJ (10:01)
[2017-02-25] MEDS ORDERED: HEPA50008 SQ (10:01)
[2017-02-25] MEDS ORDERED: VANC1VIA XX (10:01)
[2017-02-25] MEDS: NYSTATIN TOP POWDER 15 GM BOTTLE TP SCH ×2 (10:09→17:00)
[2017-02-25] MEDS: POVIDONE-IODINE OINT 28.4 GM TUBE TP SCH ×2 (10:09→17:00)
[2017-02-25 12:13] LABS: BASOPHILS % (AUTO) 0.1 % (0.0-2.0); EOSINOPHILS % (AUTO) 0.3 % (0.0-6.0); HEMATOCRIT 33 % (39-51); HEMOGLOBIN 10.7 g/dL (13.5-17.5); LYMPHOCYTES # (AUTO) 0.8 /CMM (0.8-4.8); LYMPHOCYTES % (AUTO) 10.8 % (20.0-44.0); MEAN CORPUSCULAR HEMOGLOBIN 27 PG (26.0-33.0); MEAN CORPUSCULAR HGB CONC 33 g/dl (31.0-36.0); MEAN CORPUSCULAR VOLUME 83 fL (80-96); MONOCYTES # (AUTO) 0.7 /CMM (0.1-1.30); MONOCYTES % (AUTO) 9.9 % (2.0-12.0); NEUTROPHILS # (AUTO) 5.8 /CMM (1.8-8.9); NEUTROPHILS % (AUTO) 78.9 % (43.0-81.0); PLATELET COUNT (AUTO) 432 /CMM (150-450); RDW COEFFICIENT OF VARIATION 17.8 (11.5-15.0); RED BLOOD CELL COUNT(AUTO) 3.91 MIL/uL (4.5-6.0); WHITE BLOOD COUNT (AUTO) 7.3 K/uL (4.3-11.0)
[2017-02-25 12:21] LABS: CARBON DIOXIDE 19 mmol/L (21-32); CHLORIDE 112 mmol/L (98-107); CREATININE 1.7 mg/dL (0.6-1.3); GLUCOSE 100 mg/dL (74-106); MAGNESIUM 1.8 mg/dL (1.8-2.4); PHOSPHORUS 3.1 mg/dL (2.5-4.9); POTASSIUM 3.8 mmol/L (3.5-5.1); SODIUM SERUM 141 mmol/L (136-145); UREA NITROGEN, BLOOD 17 mg/dL (7-18)
[2017-02-25] MEDS: HYDROCODONE/APAP 5/325MG 1 EACH TABLET PO PRN (13:36)
--- NOTE | 2017-02-25 13:36 | NUR ---
MEDICATED FOR ABD. PAIN WITH NORCO.
--- NOTE | 2017-02-25 15:50 | NUR ---
REPORT CALLED TO SVETA AT PT,S FACILITY.ALL PAPERS SIGNED,REPORTS IN FOLDER,NO BELONGINGS.
--- NOTE | 2017-02-25 15:55 | NUR ---
DR HERNÁNDEZ,TADEO AMADOR BUSINESS STRATEGY MANAGER AND DR. CHRIS DIEZ IN TO SEE PT.ORDERS GIVEN.PT. TO BE DC,D TODAY BACK TO [facility].
[2017-02-25 16:00] VITALS: BP 120/89
--- NOTE | 2017-02-25 16:00 | NUR ---
REFUSED DISCHARGE PHOTOS.
--- NOTE | 2017-02-25 17:15 | NUR ---
AMBULANCE HERE.REPORT TO DRIVERS.TAKEN VIA AMBULANCE TO FACILITY.
== END 2017-02-25 17:15 | DRG 871 ==
LOC: ER 01:53 → TELE 06:29 → MED 11:09
PROVIDERS: ADMIT Internal Medicine; ATTEND Nurse Practitioner Acute Care
DX: A41.9 Sepsis, unspecified organism (principal); N17.0 Acute kidney failure with tubular necrosis; G93.41 Metabolic encephalopathy; R53.2 Functional quadriplegia; E44.0 Moderate protein-calorie malnutrition; N39.0 Urinary tract infection, site not specified; N13.30 Unspecified hydronephrosis; J98.11 Atelectasis; Z88.8 Allergy status to other drugs, medicaments and biological substances; Z99.81 Dependence on supplemental oxygen; Z93.3 Colostomy status; N28.1 Cyst of kidney, acquired; N21.0 Calculus in bladder; N18.9 Chronic kidney disease, unspecified; K21.9 Gastro-esophageal reflux disease without esophagitis; J44.9 Chronic obstructive pulmonary disease, unspecified; I25.10 Atherosclerotic heart disease of native coronary artery without angina pectoris; I12.9 Hypertensive chronic kidney disease with stage 1 through stage 4 chronic kidney disease, or unspecified chronic kidney disease; G40.909 Epilepsy, unspecified, not intractable, without status epilepticus; F03.90 Unspecified dementia, unspecified severity, without behavioral disturbance, psychotic disturbance, mood disturbance, and anxiety; E66.01 Morbid (severe) obesity due to excess calories; E03.9 Hypothyroidism, unspecified; E83.52 Hypercalcemia; Z79.82 Long term (current) use of aspirin; Z79.899 Other long term (current) drug therapy; L53.9 Erythematous condition, unspecified; L89.621 Pressure ulcer of left heel, stage 1; L89.611 Pressure ulcer of right heel, stage 1; R23.4 Changes in skin texture; B96.89 Other specified bacterial agents as the cause of diseases classified elsewhere; H10.9 Unspecified conjunctivitis; T83.038A Leakage of other urinary catheter, initial encounter; Y84.6 Urinary catheterization as the cause of abnormal reaction of the patient, or of later complication, without mention of misadventure at the time of the procedure; Y92.129 Unspecified place in nursing home as the place of occurrence of the external cause; I73.9 Peripheral vascular disease, unspecified
CPT/HCPCS: 36415; 71010-TC; 76770-TC; 80048-TC; 80053-TC; 80061-TC; 80076-TC; 81000-TC; 82550-TC; 82570-TC; 82746; 82962-TC; 83605-TC; 83735-TC; 83970; 84100-TC; 84155; 84155-TC; 84165; 84300-TC; 84443-TC; 84484-TC; 85025-TC; 85730-TC; 86592; 87040-TC; 87081-TC; 87086-TC; 87186-TC; 87400; 87491; 87591; 93307-TC; 97530-TC; A4216; A4349; A4606; A6402; A6403; J0713; J1644; J1956; J2543; J2704; J3010; J3370; J3490; J7030; J7060; P9047; Z7610